=== PATIENT | male | born 1995 | race Caucasian/White ===

== ENCOUNTER 2023-06-30 14:48 | Emergency (ER) | payer OTHER, SELFPAY ==
[2023-06-30 14:51] VITALS: BP 125/76; PULSE 64; RESP 16; TEMP 36.9; O2SAT 97
--- NOTE | 2023-06-30 14:54 | ED.UPPEXIN ---
HPI - Extremity Injury (Upper) General Chief Complaint: Extremity Injury, Upper Stated Complaint: right middle finger injury Time Seen by Provider: 06/30/23 14:54 Source: patient Mode of arrival: ambulatory Limitations: no limitations History of Present Illness HPI narrative: Holly farnsworth is a 28-year-old male patient presenting to clinic today with complaints of her right middle finger injury. He reports that he was cutting a potato with a mandoline and sliced the tip of his finger off. The avulsion also involves the nail bed. Bleeding is not controlled. Tetanus is up-to-date within the last 10 years per patient Related Data Home Medications Medication Instructions Recorded Confirmed No Home Medications 06/30/23 06/30/23 Allergies Allergy/AdvReac Type Severity Reaction Status Date / Time No Known Allergies Allergy Verified 06/30/23 14:52 Review of Systems Review of Systems: Pertinent positives per HPI. Patient denies any fever, chills, rash, headache, visual changes, dizziness, cough, runny nose, sore throat, shortness of breath, chest pain, palpitations, nausea, vomiting, diarrhea, constipation, abdominal pain, or any urinary issues. PMFSH Comments At the time of my signature, I reviewed and agree with the nursing past medical, surgical, social, and family history. There is no relevant family history pertinent to the patient complaint. Exam Narrative: General: Well-developed, well nourished, in no apparent distress Head: Normocephalic, atraumatic. Cardio: Regular rate and rhythm, s1 and s2 normal, no murmur appreciated. Resp: Clear to auscultation bilaterally, no rhonchi, rales, wheezing or rubs. Integumentary: [place], warm, and dry, distal tip of the right middle finger skin avulsion involving the partial nail bed. Surgicel was applied to control bleeding and tube gauze dressing was then applied. Bleeding controlled, wound measuring approximately 1 cm x0.5 cm Course Course Emergency Course: Portions of this record may have been created with voice recognition software. Level of Care: Express Care Visit Vital Signs Vital signs: Vital signs reviewed MDM - Extremity Injury (Upper) MDM Narrative Medical decision making narrative: At the time of visit patient is resting comfortably on the exam table. Wound was cleansed with skin antiseptic wash and normal saline. Surgicel was applied to the wound to allow for clotting. Tube gauze dressing was then applied. Bleeding was controlled. Supportive measures were discussed with the patient he voiced understanding of discharge instructions and agrees to treatment plan. He declines a tetanus shot in the clinic today. Differential Diagnosis Differential diagnosis: Likely other (Full skin avulsion of the right middle finger involving the nail bed, laceration) Discharge Plan Discharge Clinical Impression: Avulsion of skin of middle finger Qualifiers: Encounter type: initial encounter Qualified Code(s): S61.208A - Unspecified open wound of other finger without damage to nail, initial encounter Laceration of nail bed of finger Qualifiers: Encounter type: initial encounter Qualified Code(s): S61.319A - Laceration without foreign body of unspecified finger with damage to nail, initial encounter Patient Disposition: Home, Self-Care Condition: Stable Instructions: Antibiotic Form, Skin Avulsion (ED), Nail Avulsion (ED) Additional Instructions: Declined tetanus shot in the clinic today Leave bandage on for 24 hours then may remove-leave the Surgicel in place until it falls off on its own Keep wound clean and dry Watch for signs and symptoms of infection- redness, streaking, swelling, purulent discharge, or increase in pain. Follow up with your PCP for suture removal or return to the Express [facility]. Prescriptions: No Action No Home Medications Follow-up/Referrals: PHYSICIAN,[facility] [Primary Care Provider] - Time of Disp
--- NOTE | 2023-06-30 15:09 | PC.NURSE ---
finger placed in soak of saline and cleanser.
--- NOTE | 2023-06-30 15:21 | PC.NURSE ---
surgicell at bedside
--- NOTE | 2023-06-30 15:23 | PC.NURSE ---
[facility] papers printed and awaiting surveillance investigator to apply surgicell.
== END 2023-06-30 15:40 | disposition home or self-care (01) ==
PROVIDERS: Emergency Provider Nurse Practitioner Family
DX: S61.312A Laceration without foreign body of right middle finger with damage to nail, initial encounter (principal); W27.4XXA Contact with kitchen utensil, initial encounter; Y93.89 Activity, other specified
CPT/HCPCS: 99212; G0463